=== PATIENT | female | born 2000 | race Two or more races ===

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

== ENCOUNTER 2025-01-30 03:00 | Emergency (ER) | payer MEDICAID, OTHER ==
[~2025-01-30] VITALS: Ht 152.4 cm; Wt 54.0 kg
[2025-01-30 03:00] VITALS: BP 115/71; PULSE 78; RESP 18; TEMP 98; O2SAT 98
== END 2025-01-30 05:40 | disposition left against medical advice (07) ==
LOC: EDBD 03:00 → ER 03:00
DX: R44.3 Hallucinations, unspecified (principal); Z53.21 Procedure and treatment not carried out due to patient leaving prior to being seen by health care provider

== ENCOUNTER 2025-02-04 02:08 | Emergency (ER) | payer SELFPAY ==
[~2025-02-04] VITALS: Ht 165.1 cm; Wt 59.0 kg
[2025-02-04 03:05] LABS: Hematocrit 28.8 % (36.0-46.0); Mean Corpuscular Volume 67.8 fL (80.0-100.0)
[2025-02-04 03:07] LABS: Hemoglobin 8.6 g/dL (12.2-16.2); Mean Corpuscular Hemoglobin 20.3 pg (28.0-32.0); Nucleated Red Blood Cells % 0.0 %
[2025-02-04 03:14] LABS: Alanine Aminotransferase 26 U/L (7-40); Albumin 4.0 g/dL (3.2-4.8); Alkaline Phosphatase 83 U/L (46-116); Anion Gap 8 (5-15); BUN/Creatinine Ratio 17.6 (10.0-20.0); Calcium 8.8 mg/dL (8.7-10.4); Carbon Dioxide 26 mmol/L (20-31); Chloride 106 mmol/L (98-107); Glucose 86 mg/dL (74-106); Potassium 3.6 mmol/L (3.5-5.1); Sodium 140 mmol/L (136-145); Total Protein 6.5 g/dL (5.7-8.2)
[2025-02-04 03:15] LABS: Acetaminophen < 2.0 UG/ML (10.0-20.0); Bilirubin, Total 0.3 mg/dL (0.2-1.0); Blood Urea Nitrogen 9 mg/dL (9-23)
[2025-02-04 03:16] LABS: Salicylate < 3.0 mg/dL (-30)
--- NOTE | 2025-02-04 03:42 | ED.PDOC ---
Psychiatric HPI Comments 24-year-old female with a history of mental health problems and homelessness now presents by ambulance. Patient states that she was looking for a place to sleep. Patient denies suicidal ideations at this time. Chief Complaint: Suicidal Time Seen by MD: 02:31 Reviewed Notes: Nurses Notes, Thread Dresser Notes Information Source: Patient Mode of Arrival: EMS Timing: Minutes Past Medical History PAST MEDICAL HISTORY: Unknown Surgical History: Unknown C T TECH History: Unknown Family History Family History: Unknown Social History Smoker: Unknown Alcohol: Unknown Drugs: Unknown Lives In: Unknown Psychiatric: reports: anxiety, schizophrenia All Other Systems: Reviewed and Negative Physical Exam Exam Comments Unkempt General Appearance: No Apparent Distress, Normal HEENT: Normal ENT Inspection, Pharynx Normal, TMs Normal Neck: Full Range of Motion, Non-Tender, Normal, Normal Inspection Respiratory: Chest Non-Tender, Lungs Clear, No Accessory Muscle Use, No Respiratory Distress, Normal Breath Sounds Cardiovascular: No Edema, No JVD, No Murmur, No Gallop, Normal Peripheral Pulses, Regular Rate/Rhythm Breast Exam: Deferred Gastrointestinal: No Organomegaly, Non Tender, No Pulsatile Mass, Normal Bowel Sounds, Soft Genitalia: Deferred Pelvic: Deferred Rectal: Deferred Extremities: No calf tenderness, Normal capillary refill, Normal inspection, Normal range of motion, Non-tender, No pedal edema Musculoskeletal : Apperance: Normal Neurologic: Alert, hospitality housekeeper II-XII nml as Tested, No Motor Deficits, Normal Affect, Normal Mood, No Sensory Deficits Cerebellar Function: Normal Reflexes: Normal Skin: Dry, Normal Color, Warm Lymphatic: No Adenopathy Was a procedure done? Was a procedure done?: No Psych Differential Dx Psych. Differential Dx: Anxiety, Bipolar Disorder, Depression, Hopeless, No symptoms Reported, Panic Disorder, Schizoprenia, Sleepless, Suicidal, Other X-Ray, Labs, Meds, VS Vital Signs Date Time Temp Pulse Resp B/P (MAP) Pulse Ox O2 Delivery O2 Flow Rate FiO2 02/04/25 02:52 Room Air* 0 21 02/04/25 02:16 97.9 85 20 116/60 98 97.9 Lab Test 02/04/25 02:41 Range/Units White Blood Count 10.0 4.4-10.8 10^3/uL Red Blood Count 4.24 4.0-5.20 10^6/uL Hemoglobin 8.6 L 12.2-16.2 g/dL Hematocrit 28.8 L 36.0-46.0 % Mean Corpuscular Volume 67.8 L 80.0-100.0 fL Mean Corpuscular Hemoglobin 20.3 L 28.0-32.0 pg Mean Corpuscular Hemoglobin Concent 29.9 L 32.0-36.0 g/dL Red Cell Distribution Width 18.4 H 11.8-14.3 % Platelet Count 381 140-450 10^3/uL Mean Platelet Volume 6.2 L 6.9-10.8 fL Neutrophils (%) (Auto) 62.5 37.0-80.0 % Lymphocytes (%) (Auto) 27.9 10.0-50.0 % Monocytes (%) (Auto) 7.2 0.0-12.0 % Eosinophils (%) (Auto) 2.0 0.0-7.0 % Basophils (%) (Auto) 0.4 0.0-2.0 % Neutrophils # (Auto) 6.2 1.6-8.6 10 ^3/uL Lymphocytes # (Auto) 2.8 0.4-5.4 10 ^3/uL Monocytes # (Auto) 0.7 0-1.3 10 ^3/uL Eosinophils # (Auto) 0.2 0-0.8 10 ^3/uL Basophils # (Auto) 0 0-0.2 10 ^3/uL Nucleated Red Blood Cells 0.0 % Sodium Level 140 136-145 mmol/L Potassium Level 3.6 3.5-5.1 mmol/L Chloride Level 106 98-107 mmol/L Carbon Dioxide Level 26 20-31 mmol/L Anion Gap 8 5-15 Blood Urea Nitrogen 9 9-23 mg/dL Creatinine 0.51 L 0.550-1.02 mg/dL Glomerular Filtration Rate Calc 134 >90 mL/min BUN/Creatinine Ratio 17.6 10.0-20.0 Serum Glucose 86 74-106 mg/dL Calcium Level 8.8 8.7-10.4 mg/dL Total Bilirubin 0.3 0.2-1.0 mg/dL Aspartate Amino Transferase (AST) 39 13-40 U/L Alanine Aminotransferase (ALT) 26 7-40 U/L Alkaline Phosphatase 83 46-116 U/L Total Protein 6.5 5.7-8.2 g/dL Albumin 4.0 3.2-4.8 g/dL Salicylates Level < 3.0 -30 mg/dL Acetaminophen Level < 2.0 L 10.0-20.0 UG/ML Plasma/Serum Blood Alcohol < 3.0 <10 mg/dL Time of 1ST Reevaluation: 03:00 Reevaluation 1ST: Improved Patient Education/Counseling: Diagnosis, Treatment Family Education/Counseling: No Family Present Departure 1 Departure Time of Disposition: 05:24 Impression: Primary Impression: Mental health problem Disposition: HOME / SELF CARE / HOMELESS Condition: Stable Discharged With: Self Comments 24-year-old female with a history of mental health problems now presents with scattered thoughts. Patient does not seem to be actively suicidal. Patient is medically cleared at this time. Patient is awaiting mental health consultation at this time. Critical Care Note Critical Care Time?: No Stability Stability form required: No Heart Score Heart Score: Heart Score Response (Comments) Value History N/A 0 EKG N/A 0 Age N/A 0 Risk Factors N/A 0 Troponin N/A 0 Total 0 CHELSY ALMENDAREZ MD Feb 04, 2025 03:42
[2025-02-04 07:50] VITALS: PULSE 86; RESP 19; O2SAT 97
--- NOTE | 2025-02-04 08:55 | DVHINCON2 ---
Date of Service if different f: Feb 04, 2025 Consultation ([place]) Labs Laboratory Tests Test 02/04/25 02:41 White Blood Count 10.0 10^3/uL (4.4-10.8) Red Blood Count 4.24 10^6/uL (4.0-5.20) Hemoglobin 8.6 g/dL (12.2-16.2) Hematocrit 28.8 % (36.0-46.0) Mean Corpuscular Volume 67.8 fL (80.0-100.0) Mean Corpuscular Hemoglobin 20.3 pg (28.0-32.0) Mean Corpuscular Hemoglobin Concent 29.9 g/dL (32.0-36.0) Red Cell Distribution Width 18.4 % (11.8-14.3) Platelet Count 381 10^3/uL (140-450) Mean Platelet Volume 6.2 fL (6.9-10.8) Neutrophils (%) (Auto) 62.5 % (37.0-80.0) Lymphocytes (%) (Auto) 27.9 % (10.0-50.0) Monocytes (%) (Auto) 7.2 % (0.0-12.0) Eosinophils (%) (Auto) 2.0 % (0.0-7.0) Basophils (%) (Auto) 0.4 % (0.0-2.0) Neutrophils # (Auto) 6.2 10 ^3/uL (1.6-8.6) Lymphocytes # (Auto) 2.8 10 ^3/uL (0.4-5.4) Monocytes # (Auto) 0.7 10 ^3/uL (0-1.3) Eosinophils # (Auto) 0.2 10 ^3/uL (0-0.8) Basophils # (Auto) 0 10 ^3/uL (0-0.2) Nucleated Red Blood Cells 0.0 % Sodium Level 140 mmol/L (136-145) Potassium Level 3.6 mmol/L (3.5-5.1) Chloride Level 106 mmol/L (98-107) Carbon Dioxide Level 26 mmol/L (20-31) Anion Gap 8 (5-15) Blood Urea Nitrogen 9 mg/dL (9-23) Creatinine 0.51 mg/dL (0.550-1.02) Glomerular Filtration Rate Calc 134 mL/min (>90) BUN/Creatinine Ratio 17.6 (10.0-20.0) Serum Glucose 86 mg/dL (74-106) Calcium Level 8.8 mg/dL (8.7-10.4) Total Bilirubin 0.3 mg/dL (0.2-1.0) Aspartate Amino Transf (AST/SGOT) 39 U/L (13-40) Alanine Aminotransferase (ALT/SGPT) 26 U/L (7-40) Alkaline Phosphatase 83 U/L (46-116) Total Protein 6.5 g/dL (5.7-8.2) Albumin 4.0 g/dL (3.2-4.8) Salicylates Level < 3.0 mg/dL (-30) Acetaminophen Level < 2.0 UG/ML (10.0-20.0) Plasma/Serum Blood Alcohol < 3.0 mg/dL (<10) Appetite: Good Appearance: Stated age, Disheveled Psychomotor activity: WNL Behavioral: Cooperative Eye contact: Limited Speech: Mumbled Affect: Blunted Mood: Neutral Thought processes: Linear/Goal-directed Thought content: WNL Suicidal ideations: Absent Homicidal ideations: Absent Orientation: Person, Place, Time, Situation Memory intact: Recent Intellect: Average Abstractability: WNL Concentration: Limited Attention: Limited Judgement: WNL Insight: Limited Vitals Vital Signs Date Time Temp Pulse Resp B/P (MAP) Pulse Ox O2 Delivery O2 Flow Rate FiO2 02/04/25 07:50 86 19 97 Room Air* 0 21 02/04/25 07:50 98.4 102/37 (58) 98.4 Medication adjusted: No Labs ordered: No Diagnosis: unspecified psychosis r/o substance-induced Plan : This is a 24-year-old homeless female presented here for hallucinations in the context of stimulant abuse. She presently denies Si/hi or any auditory/visual hallucinations. Patient is requesting resources for [facility]ci and rehab programs, please connect with psychiatric social worker supervisor Patient can be discharged after medical clearance History of Present Illness Reason for Consult : Patient reported hallucinations on presentation here and also needing a place to sleep. HPI : This is a 24-year-old homeless female presented here for hallucinations in the context of using stimulants. Patient was also here for overdose yesterday after being found in the community unresponsive but later discharged. She reports using meth and cocaine yesterday and has been using for awhile. She reports being homeless for a long time and not knowing whereabouts of her famil y. She reports after stimulant use yesterday, she was hearing things, but now, she denies any auditory/visual hallucinations or paranoid thoughts. She also denies suicidal/homicidal ideation. patient was visibly drowsy on exam, recently woken up to eat breakfast. She would like referrals for outpatient services and rehab Past Psychiatric History : She reports hx of bipolar and anxiety but unclear if this is a formal diagnosis as she denies hx of being prescribed psychotropic medications. She reports past psych admissions but no details provided. She also reports hx of suicide attempts but also no details provided on questioning. She denies any current outpatient services. Past Medical History : She denies Social History : She is homeless, no clear duration. She is single, no children or social support. She reports use of cocaine, meth and cigarettes. denies IVD. no known family history NOBLE SANDOVAL DNP Feb 04, 2025 08:55
[2025-02-04 10:47] VITALS: BP 106/49; PULSE 89; RESP 17; TEMP 97.7; O2SAT 97
--- NOTE | 2025-02-04 11:12 | ED.PDOC ---
Departure 1 Departure Time of Disposition: 11:11 (Patient was mentally cleared and evaluated by psychiatry who recommended patient be discharged home. We will discharge patient home) Impression: Primary Impression: Mental health problem Disposition: HOME / SELF CARE / HOMELESS Condition: Stable Additional Instructions: Discharge Note: Drink plenty of fluids. Follow up with your primary Dr. If your condition becomes worse call and follow up with your primary Dr. for instructions or return to the ER if needed. Thank you for visiting [facility]. Discharged With: Self FAISAL MURRAY MD Feb 04, 2025 11:12
[2025-02-04 11:32] LABS: Urine Budding Yeast OCCASIONAL /hpf (None Seen); Urine Protein, UAD Negative (Negative)
[2025-02-04 11:44] LABS: Cannabinoid Screen, Urine Neg (NEGATIVE)
[2025-02-04 11:45] LABS: Amphetamine Screen, Urine Pos (NEGATIVE); Barbiturate Scree,Urine Neg (NEGATIVE); Benzodiazephine Screen, Urine Pos (NEGATIVE); Cocaine Screen, Urine Neg (NEGATIVE); Opiate Scree,Urine Neg (NEGATIVE); Phencyclidine Screen, Urine Neg (NEGATIVE)
== END 2025-02-04 11:14 | disposition home or self-care (01) ==
LOC: ER 02:08 → EDUNIT# 02:08 → EDBD 02:08 → ER 11:14
DX: F99 Mental disorder, not otherwise specified (principal); F41.9 Anxiety disorder, unspecified; F20.9 Schizophrenia, unspecified; Z91.51 Personal history of suicidal behavior; Z79.899 Other long term (current) drug therapy
CPT/HCPCS: 36415; 80053; 80307; 80320; 80329; 81001; 81025; 85025